=== PATIENT | male | born 1970 | race Caucasian/White ===

== ENCOUNTER 2020-10-25 10:03 | Inpatient (IN) | payer BC ==
[2020-10-25] VITALS (38 sets, daily range): BP systolic 86–137; BP diastolic 38–81
[~2020-10-25] VITALS: Ht 177.8 cm; Wt 98.4 kg
[2020-10-25] MEDS ORDERED: DOPAMINE 400MG/250ML PREMIX 250 ML IV STA (10:07)
[2020-10-25] MEDS ORDERED: ETOMIDATE 2MG/ML 10ML VIAL IV ONE ×2 (10:11→10:15)
[2020-10-25] MEDS ORDERED: SUCCINYLCHOLINE CHLORIDE 200MG/10ML IV ONE ×2 (10:11→10:15)
[2020-10-25] MEDS ORDERED: ATROPINE SULFATE 1MG/10ML SYR ONE (10:11)
[2020-10-25] MEDS ORDERED: NALOXONE HCL 1 MG/ML 2ML VIAL IV ONE (10:15)
[2020-10-25] MEDS ORDERED: SODIUM CHLORIDE 0.9% 1,000 ML IV ONE (10:15)
[2020-10-25] MEDS ORDERED: PROPOFOL 10MG/ML 100ML 100 ML IV ONE (10:15)
[2020-10-25 10:36] LABS: CHLORIDE 111 mEq/L (98-107)
[2020-10-25 10:40] LABS: ETHANOL BLOOD < 10 mg/dL
[2020-10-25 10:46] LABS: HCG SCREEN NEGATIVE
[2020-10-25] MEDS ORDERED: DOPAMINE 400MG/250ML PREMIX 250 ML IV ONE (11:00)
[2020-10-25 11:24] LABS: BG BASE EXCESS -5.5 mmol/L (-2.0-2.0); BG CARBOXYHEMOGLOBIN 0.8 % (0.5-1.5); BG DEOXYHEMOGLOBIN 1.7 % (0.0-5.0); BG FRACTION INSPIRED OXYGEN 50; BG HCO3 ACT 20.5 mmol/L (22.0-26.0); BG METHEMOGLOBIN 0.2 % (0.0-1.5); BG OXYGEN SATURATION 98.3 % (92.0-98.5); BG OXYHEMOGLOBIN 97.3 % (94.0-97.0); BG PCO2 41.5 mmHg (35.0-45.0); BG PH 7.311 (7.350-7.450); BG SAMPLE SITE LEFT RADIAL; BG TOTAL HEMOGLOBIN 14.7 g/dL (12.0-18.0); BG TOTAL RESPIRATORY RATE 14 b/min; BG VENT MODE VENT - AC
[2020-10-25] MEDS ORDERED: PROPOFOL 200MG/20ML VIAL IV ONE ×2 (11:30→11:45)
[2020-10-25 11:31] LABS: BASOPHILS % 1.1 % (0.0-2.0); HEMATOCRIT. 43.7 % (42.0-52.0); HEMOGLOBIN. 15.7 g/dL (14.0-18.0); LYMPHOCYTES % 34.3 % (20.0-50.0); MEAN CORPUSCULAR HEMOGLOBIN 31.9 pg (28.0-32.0); MEAN CORPUSCULAR VOLUME 88.6 fL (80.0-94.0); MEAN PLATELET VOLUME 9.2 fl (7.4-10.4); MONOCYTES % 7.2 % (2.0-8.0); NEUTROPHILS % 52.4 % (40.0-76.0); PLATELET 187 x1000/uL (130-400); RED BLOOD CELL COUNT 4.93 mill/uL (4.7-6.1); RED CELL DISTRIBUTION WIDTH 13.1 % (11.6-14.6)
[2020-10-25] MEDS ORDERED: MIDAZOLAM HCL 100 MG in DEXT 5% WATER 80 ML IV ONE (11:45)
[2020-10-25] MEDS ORDERED: MIDAZOLAM HCL 100 MG in SODIUM CHLORIDE 0.9% 100 ML IV NR (11:45)
[2020-10-25 11:55] LABS: CLARITY URINE CLEAR (CLEAR); COLOR URINE DARK YELLOW (YELLOW); KETONES URINE TRACE (NEGATIVE); LEUKOCYTE ESTERASE URINE NEGATIVE (NEGATIVE); NITRITE URINE NEGATIVE (NEGATIVE); OCCULT BLOOD URINE 3+ (NEGATIVE); PH URINE 5.5 (4.5-8.0); PROTEIN URINE NEGATIVE (NEGATIVE); SPECIFIC GRAVITY URINE 1.022 (1.005-1.030)
[2020-10-25] MEDS ORDERED: PROPOFOL 10MG/ML 100ML 100 ML IV SCH (12:30)
[2020-10-25 12:38] LABS: *BARBITURATES SCREEN URINE NEGATIVE (NEGATIVE); *BENZODIAZEPINES SCREEN URINE NEGATIVE (NEGATIVE); PHENCYCLIDINE URINE SCREEN NEGATIVE (NEGATIVE)
[2020-10-25 12:39] LABS: *AMPHETAMINES SCREEN URINE PRESUMTIVE POSITIVE (NEGATIVE); *COCAINE SCREEN URINE NEGATIVE (NEGATIVE); METHADONE URINE SCREEN NEGATIVE (NEGATIVE); OPIATES URINE SCREEN NEGATIVE (NEGATIVE)
[2020-10-25 12:41] LABS: CANNABINOID URINE SCREEN PRESUMTIVE POSITIVE (NEGATIVE)
[2020-10-25] MEDS ORDERED: FENTANYL CITRATE/PF 2,500 MCG in SODIUM CHLORIDE 0.9% 200 ML IV PRN (13:45)
[2020-10-25] MEDS ORDERED: ONDANSETRON HCL 4MG/2ML INJ IV PRN (14:30)
[2020-10-25] MEDS ORDERED: ENOXAPARIN 40MG/0.4ML SYR SUBCUT SCH (14:30)
[2020-10-25] MEDS ORDERED: LIDOCAINE HCL 1% 20ML VIAL (Pyxis) INJ ONE (14:33)
[2020-10-25] MEDS: PANTOPRAZOLE SODIUM 40 MG/VIAL IV SCH (15:03)
[2020-10-25] MEDS: DEXT 5%/0.45% NACL 1000ML 1,000 ML IV SCH (15:03)
[2020-10-25] MEDS: FENTANYL CITRATE/PF 2,500 MCG in SODIUM CHLORIDE 0.9% 200 ML IV PRN (18:44)
[2020-10-25] MEDS ORDERED: BUPR-315 MT (20:20)
[2020-10-25] MEDS ORDERED: AMPH30CA7 MT (20:20)
[2020-10-25] MEDS ORDERED: VARE1TAB21 PO (20:20)
[2020-10-25] MEDS ORDERED: ALPR-341 PO (20:20)
[2020-10-25] MEDS ORDERED: FINA1TAB18 MT (20:20)
[2020-10-25] MEDS: PROPOFOL 10MG/ML 100ML 100 ML IV PRN (20:56)
[2020-10-26] VITALS (88 sets, daily range): BP systolic 85–152; BP diastolic 44–99
[2020-10-26] MEDS: PROPOFOL 10MG/ML 100ML 100 ML IV PRN ×3 (01:01→10:10)
[2020-10-26 05:45] LABS: BASOPHILS % 0.9 % (0.0-2.0); EOSINOPHILS % 3.4 % (0.0-5.0); HEMATOCRIT. 38.4 % (42.0-52.0); HEMOGLOBIN. 13.4 g/dL (14.0-18.0); LYMPHOCYTES % 27.4 % (20.0-50.0); MEAN CORPUSCULAR HEMOGLOBIN 31.4 pg (28.0-32.0); MEAN CORPUSCULAR VOLUME 90.2 fL (80.0-94.0); MEAN PLATELET VOLUME 9.3 fl (7.4-10.4); MONOCYTES % 8.1 % (2.0-8.0); NEUTROPHILS % 60.2 % (40.0-76.0); PLATELET 187 x1000/uL (130-400); RED BLOOD CELL COUNT 4.26 mill/uL (4.7-6.1); RED CELL DISTRIBUTION WIDTH 13.3 % (11.6-14.6)
[2020-10-26 05:53] LABS: CHLORIDE 108 mEq/L (98-107)
[2020-10-26] MEDS: DEXT 5%/0.45% NACL 1000ML 1,000 ML IV SCH ×2 (06:51→18:14)
[2020-10-26 07:37] LABS: BG BASE EXCESS -2.6 mmol/L (-2.0-2.0); BG CARBOXYHEMOGLOBIN 0.4 % (0.5-1.5); BG HCO3 ACT 22.6 mmol/L (22.0-26.0); BG METHEMOGLOBIN 0.2 % (0.0-1.5); BG OXYHEMOGLOBIN 96.4 % (94.0-97.0); BG PCO2 40.7 mmHg (35.0-45.0); BG PH 7.363 (7.350-7.450); BG PO2 91.9 mmHg (75.0-100.0); BG SAMPLE SITE RIGHT RADIAL; BG TOTAL HEMOGLOBIN 13.5 g/dL (12.0-18.0); BG VENT MODE VENT - AC
[2020-10-26] MEDS: ENOXAPARIN 30MG/0.3ML SYR SUBCUT SCH ×2 (08:23→20:26)
[2020-10-26] MEDS: PANTOPRAZOLE SODIUM 40 MG/VIAL IV SCH (08:23)
[2020-10-26] MEDS: FENTANYL CITRATE/PF 2,500 MCG in SODIUM CHLORIDE 0.9% 200 ML IV PRN (08:33)
[2020-10-26] MEDS ORDERED: ENOXAPARIN 40MG/0.4ML SYR SUBCUT SCH (09:00)
[2020-10-26 13:03] LABS: BG BASE EXCESS -2.7 mmol/L (-2.0-2.0); BG CARBOXYHEMOGLOBIN 0.4 % (0.5-1.5); BG DEOXYHEMOGLOBIN 3.6 % (0.0-5.0); BG HCO3 ACT 23.1 mmol/L (22.0-26.0); BG METHEMOGLOBIN 0.2 % (0.0-1.5); BG OXYGEN SATURATION 96.4 % (92.0-98.5); BG OXYHEMOGLOBIN 95.8 % (94.0-97.0); BG PCO2 43.9 mmHg (35.0-45.0); BG PH 7.339 (7.350-7.450); BG PO2 88.7 mmHg (75.0-100.0); BG SAMPLE SITE RIGHT RADIAL; BG VENT MODE VENT - SIMV
[2020-10-26 14:31] LABS: BG BASE EXCESS -2.7 mmol/L (-2.0-2.0); BG CARBOXYHEMOGLOBIN 1.1 % (0.5-1.5); BG DEOXYHEMOGLOBIN 8.5 % (0.0-5.0); BG FRACTION INSPIRED OXYGEN 45; BG HCO3 ACT 23.4 mmol/L (22.0-26.0); BG METHEMOGLOBIN 0.1 % (0.0-1.5); BG OXYGEN SATURATION 91.4 % (92.0-98.5); BG OXYHEMOGLOBIN 90.3 % (94.0-97.0); BG PCO2 45.5 mmHg (35.0-45.0); BG PH 7.329 (7.350-7.450); BG PO2 62.1 mmHg (75.0-100.0); BG SAMPLE SITE RIGHT RADIAL; BG TOTAL HEMOGLOBIN 14.5 g/dL (12.0-18.0); BG VENT MODE VENT - CPAP
[2020-10-26] MEDS: ALBUTEROL (0.083%) 2.5MG/3ML NEB HHN SCH ×2 (15:16→20:50)
[2020-10-26] MEDS: ACETYLCYSTEINE 100MG/ML 10% VIAL 4ML INH SCH (15:16)
[2020-10-26 17:08] LABS: BG BASE EXCESS -1.7 mmol/L (-2.0-2.0); BG CARBOXYHEMOGLOBIN 0.6 % (0.5-1.5); BG HCO3 ACT 24.1 mmol/L (22.0-26.0); BG METHEMOGLOBIN 0.2 % (0.0-1.5); BG OXYHEMOGLOBIN 94.2 % (94.0-97.0); BG PCO2 44.8 mmHg (35.0-45.0); BG PH 7.349 (7.350-7.450); BG PO2 76.1 mmHg (75.0-100.0); BG SAMPLE SITE RIGHT RADIAL; BG VENT MODE COOL AEROSOL
[2020-10-26] MEDS ORDERED: LORAZEPAM 2MG/ML CPJ IV PRN (19:45)
[2020-10-26] MEDS: ACETAMINOPHEN 325MG TABLET PO PRN (20:40)
[2020-10-26] MEDS ORDERED: ACETYLCYSTEINE 100MG/ML 10% VIAL 4ML INH SCH (22:00)
[2020-10-27] VITALS (15 sets, daily range): BP systolic 97–128; BP diastolic 45–86
[2020-10-27] MEDS: ACETAMINOPHEN 325MG TABLET PO PRN ×2 (02:46→10:29)
[2020-10-27] MEDS: ALBUTEROL (0.083%) 2.5MG/3ML NEB HHN SCH ×4 (04:00→11:38)
[2020-10-27] MEDS: DEXT 5%/0.45% NACL 1000ML 1,000 ML IV SCH (06:23)
[2020-10-27] MEDS: ACETYLCYSTEINE 100MG/ML 10% VIAL 4ML INH SCH ×2 (07:33)
[2020-10-27] MEDS: PANTOPRAZOLE SODIUM 40 MG/VIAL IV SCH (09:00)
[2020-10-27] MEDS: ENOXAPARIN 30MG/0.3ML SYR SUBCUT SCH (09:00)
== END 2020-10-27 12:15 | disposition home or self-care (01) | DRG 917 ==
LOC: ER 10:03 → CANRESERV 12:47 → ENRESERV 12:47 → MICUSO 13:48
PROVIDERS: ADMIT Internal Medicine; ATTEND Internal Medicine
PROC: 05HM33Z Insertion of Infusion Device into Right Internal Jugular Vein, Percutaneous Approach (ICD-10-PCS; principal; 2020-10-25)
PROC: B543ZZA Ultrasonography of Right Jugular Veins, Guidance (ICD-10-PCS; 2020-10-25)
PROC: 0BH17EZ Insertion of Endotracheal Airway into Trachea, Via Natural or Artificial Opening (ICD-10-PCS; 2020-10-25)
PROC: 5A1945Z Respiratory Ventilation, 24-96 Consecutive Hours (ICD-10-PCS; 2020-10-25)
DX: T43.621A Poisoning by amphetamines, accidental (unintentional), initial encounter (principal); G92 Toxic encephalopathy; J96.01 Acute respiratory failure with hypoxia; J18.9 Pneumonia, unspecified organism; R74.01 Elevation of levels of liver transaminase levels; F15.10 Other stimulant abuse, uncomplicated; F12.10 Cannabis abuse, uncomplicated; E87.8 Other disorders of electrolyte and fluid balance, not elsewhere classified; T43.641A Poisoning by ecstasy, accidental (unintentional), initial encounter; Z78.1 Physical restraint status; Y92.89 Other specified places as the place of occurrence of the external cause
CPT/HCPCS: 36415; 36600; 71045; 76937; 80048; 80053; 80305; 80320; 81003; 82140; 82375; 82805; 82962; 83605; 83880; 84145; 84478; 84484; 84703; 85025; 87070; 93005; 94002; 94003; 94640; 99291; C1725; C9113; J0330; J0461; J1265; J1650; J2060; J2250; J2310; J2704; J3010; J3490; J7030; J7050; J7060; J7608; A4315; G0480